=== PATIENT | female | born 1990 | race Caucasian/White ===

== ENCOUNTER 2016-08-02 12:01 | Inpatient (IN) | payer OTHER ==
[~2016-08-02] VITALS: Ht 154.9 cm; Wt 49.0 kg
[2016-08-02 12:03] VITALS: BP 143/99
[2016-08-02] MEDS ORDERED: ONDANSETRON 4 MG/2 ML VIAL IVP ONE (12:35)
[2016-08-02] MEDS ORDERED: NACL 0.9% 1,000 ML IV ONE (12:35)
[2016-08-02 12:40] LABS: BASOPHILS # (AUTO) 0.1 K/uL (0.00-0.22); BASOPHILS % (AUTO) 0.9 % (0.0-2.0); EOSINOPHILS # (AUTO) 0.2 K/uL (0-0.4); EOSINOPHILS % (AUTO) 2.6 % (0.0-4.0); HEMATOCRIT 29.7 % (36-48); HEMOGLOBIN 9.5 g/dL (12.0-16.0); LYMPHOCYTES # (AUTO) 1.1 K/uL (2.5-16.5); LYMPHOCYTES % (AUTO) 13.6 % (20.5-51.1); MEAN CORPUSCULAR HEMOGLOBIN 28 pg (27-31); MEAN CORPUSCULAR HGB CONC 32 g/dL (33-37); MEAN CORPUSCULAR VOLUME 88 fL (80-94); MONOCYTES # (AUTO) 0.2 K/uL (0.8-1.0); MONOCYTES % (AUTO) 2.9 % (1.7-9.3); NEUTROPHILS # (AUTO) 6.7 K/uL (1.8-7.7); PLATELET COUNT (AUTO) 566 K/uL (140-450); RED BLOOD CELL COUNT(AUTO) 3.39 MIL/uL (4.20-5.40); RED CELL DISTRIBUTION WIDTH 16.3 % (11.6-13.7); WHITE BLOOD COUNT (AUTO) 8.3 K/uL (4.8-10.8)
[2016-08-02] MEDS ORDERED: KETOROLAC 30 MG/ML VIAL IVP ONE (12:45)
--- NOTE | 2016-08-02 12:45 | NUR ---
PT PLACED IN BED 7. Addendum: 08/02/16 at 1422 by [facility] Amendment undone in EDM - 08/02/16 at 1422 by [facility] Pt continues to have dry heaving and severe nausea. Lights dimmed. Dr. See made aware.
[2016-08-02] MEDS ORDERED: PROMETHAZINE 25 MG/ML VIAL IVP ONE (13:00)
--- NOTE | 2016-08-02 13:00 | NUR ---
PT RECEIVED IV ZOFRAN. PT CONTINUES TO DRY HEAVE AND VOMITING. DR. BILL MADE AWARE.
--- NOTE | 2016-08-02 13:04 | NUR ---
25/F bib sister for vomiting and abdominal pain starting last night. Pt is noted vomiting with severe nausea and dry heaving. Patient states "I was just discharged from [facility] for the same thing." Patient states she was admitted for "some gastro something. I dont know what it's called." Abdomen soft, tender with palpation. Pt denies any diarrhea. Patient is AOX4, clear speech, skin is pale, cool to touch. Pt placed in a gown, on choir singer pulse oximetry and blood pressure monitoring.
--- NOTE | 2016-08-02 13:10 | NUR ---
MEDICATED FOR VOMITING
[2016-08-02 13:14] LABS: ALBUMIN 3.3 g/dL (3.4-5.0); ANION GAP 11.4 (8-16); CALCIUM 8.9 mg/dL (8.5-10.1); CARBON DIOXIDE 29.5 mmol/L (21-32); CREATININE 1.3 mg/dL (0.6-1.3); POTASSIUM 4.9 mmol/L (3.5-5.1); TOTAL BILIRUBIN 0.2 mg/dL (0.0-1.0); TOTAL PROTEIN, SERUM 6.1 g/dL (6.4-8.2)
[2016-08-02] MEDS ORDERED: MORPHINE SULFATE 4 MG/ML SYR IVP ONE (13:20)
--- NOTE | 2016-08-02 13:30 | NUR ---
Patient being evaluated by Dr. See at bedside.
--- NOTE | 2016-08-02 13:32 | NUR ---
MEDICATED FOR PAIN
--- NOTE | 2016-08-02 13:32 | NUR ---
CONTINUE TO MONITOR
[2016-08-02] MEDS ORDERED: LANTUS SUBQ (13:43)
[2016-08-02] MEDS ORDERED: CLON0.1T42 PO (13:43)
[2016-08-02] MEDS ORDERED: PANT40EC PO (13:43)
[2016-08-02] MEDS ORDERED: SYN.1 PO (13:43)
--- NOTE | 2016-08-02 13:44 | NUR ---
PT REPORTS BEING ON HUMALOG BASED ON HOME SLIDING SCALE.
--- NOTE | 2016-08-02 13:45 | NUR ---
PT CONTINUES TO C/O SEVERE NAUSEA AND HEADACHE BUT REPORTS HAVING IMPROVEMENT WITH ABDOMINAL PAIN. PT NOTED VOMITING AND DRY HEAVING AT THIS TIME. DR. BILL MADE AWARE.
[2016-08-02] MEDS ORDERED: METOCLOPRAMIDE 10 MG/2 ML INJ VIAL IVP ONE (13:50)
[2016-08-02] MEDS ORDERED: diphenhydrAMINE 50 MG/ML VIAL IVP ONE (13:50)
--- NOTE | 2016-08-02 14:22 | NUR ---
Pt continues to have dry heaving and severe nausea. Lights dimmed. Dr. See made aware.
[2016-08-02] MEDS ORDERED: LORazepam 2 MG/ML VIAL IVP PRN (14:25)
[2016-08-02] MEDS ORDERED: ACETAMINOPHEN 325 MG TAB PO PRN (14:25)
[2016-08-02] MEDS ORDERED: DEXTROSE 50% 50 ML SYR IVP PRN (14:25)
[2016-08-02] MEDS ORDERED: LORazepam 2 MG/ML VIAL IVP ONE (14:30)
--- NOTE | 2016-08-02 14:43 | NUR ---
Patient will be admitted to care of Dr. Cunha. Admited to TELE. Will go to room 120B. Belongings list completed. Report to Katie FRANCIS.
--- NOTE | 2016-08-02 15:15 | NUR ---
PT ON UNIT. NO S/S OF ACUTE DISTRESS. PT SLEEPING IN BED. IV SITE PATENT AND INTACT. AAOX4. PT APPEARS PALE AND LETHARGIC. PT'S SISTER AT BEDSIDE. PT AND SISTER ORIENTED TO ROOM. CALL LIGHT WITHIN REACH. SAFETY MEASURES ENSURED. WILL CONTINUE TO MONITOR.
[2016-08-02] MEDS: NACL 0.9% 1,000 ML IV SCH (15:16)
[2016-08-02 15:17] VITALS: BP 163/100
[2016-08-02] MEDS ORDERED: PNEUMOCOCCAL VACCINE 23 MCG/0.5 ML VIAL IMVAC SCH (15:35)
[2016-08-02] MEDS ORDERED: METOCLOPRAMIDE 10 MG/2 ML INJ VIAL IVP PRN (16:55)
--- NOTE | 2016-08-02 17:09 | NUR ---
PT SLEEPING IN BED. NO S/S OF ACUTE DISTRESS. IV SITE PATENT AND INTACT. CALL LIGHT WITHIN REACH. BED ALARM ON. WILL CONTINUE TO MONITOR.
[2016-08-02] MEDS ORDERED: LABETALOL 200 MG TAB PO SCH (17:15)
[2016-08-02] MEDS: BLOOD GLUCOSE MONITORING 1 DEV DEV FS SCH ×2 (17:25→21:17)
[2016-08-02] MEDS: HYDROcodone/APAP 5/325 MG 1 TAB TAB PO PRN (17:54)
[2016-08-02] MEDS: INSULIN LISPRO SLIDING SCALE 100 UNITS/ML VIAL SUBQ PRN ×2 (18:32→21:16)
--- NOTE | 2016-08-02 19:33 | NUR ---
RECEIVED REPORT FROM DAY SHIFT NURSE. PT IS AAOX4, SHE IS VOMITING AT THIS TIME, WILL MEDICATE PT. ON ROOM HAS NO S/S OF RESPIRATORY DISTRESS/DISCOMFORT NOTED. IV IS PATENT AND INTACT. PLAN OF CARE DISCUSSED, VERBALIZED UNDERSTANDING. SAFETY MEASURES CHECKED, CALL LIGHT WITHIN REACH. WILL CONTINUE TO MONITOR.
--- NOTE | 2016-08-02 19:33 | NUR ---
ENDORSED PLAN OF CARE TO NIGHT RN. PT REMAINS IN STABLE CONDITION.
[2016-08-02] MEDS: ONDANSETRON 4 MG/2 ML VIAL IVP PRN (19:51)
[2016-08-02] MEDS ORDERED: PANTOPRAZOLE 40 MG INJ VIAL IVP SCH (21:00)
[2016-08-02] MEDS ORDERED: INSULIN GLARGINE RECOMBINAN SUBQ SCH (21:00)
[2016-08-02] MEDS ORDERED: cloNIDine 0.1 MG TAB PO SCH (21:00)
[2016-08-02] MEDS: INSULIN DETEMIR 100 UNITS/ML 10 ML VIAL SUBQ SCH (21:14)
--- NOTE | 2016-08-02 21:15 | NUR ---
PT COMPLAINED OF PAIN, PROVIDED HEALTH TEACHING ABOUT PAIN MANAGEMENT, OFFERED TO DISCUSS IT TOMORROW WITH THE DOCTOR ABOUT HER PAIN, OFFERED TYLENOL AND VERBALIZED AGREEMENT. WILL ADMINISTER PAIN MED PER MD ORDERED.
[2016-08-02] MEDS: PANTOPRAZOLE 40 MG INJ VIAL IVP SCH (21:28)
[2016-08-02] MEDS: cloNIDine 0.1 MG TAB PO SCH (21:29)
--- NOTE | 2016-08-02 21:30 | NUR ---
DUE MEDS GIVEN. PROVIDED HEALTH TEACHING , S/E AND BENEFITS OF MEDS, VERBALIZED UNDERSTANDING. PT TOLERATED WELL.
--- NOTE | 2016-08-02 22:50 | NUR ---
SISTER FIDEL CALLED AND SPOKE HER VIA PHONE. SHE STATED THAT THE PT CALLED HER BECAUSE SHE WANTED TO DISCHARGE AND GO TO [place]. PT IS SLEEPING, AND IN STABLE CONDITION. I TOLD TO THE SISTER TO CALL BACK FOR ANY UPDATES. CHARGE NURSE MADE AWARE AND WILL ENDORSE TO AM NURSE.
[2016-08-03] VITALS (7 sets, daily range): BP systolic 110–155; BP diastolic 54–99
--- NOTE | 2016-08-03 | NUR ---
EYES CLOSED, RESTING QUIETLY. BREATHING EVEN AND UNLABORED. V/S CHECKED AND STABLE. CALL LIGHT WITHIN REACH.
--- NOTE | 2016-08-03 00:40 | NUR ---
SISTER FIDEL CALLED UPDATED PT'S CONDITION AND PT IS SLEEPING AND IN STABLE CONDITION. CALL LIGHT WITHIN REACH.
--- NOTE | 2016-08-03 01:15 | NUR ---
PT CHECKED, EYES CLOSED AND RESTING QUIETLY, BREATHING EVEN AND UNLABORED. NO S/S OF RESPIRATORY DISTRESS/DISCOMFORT NOTED. CALL LIGHT WITHIN REACH.
[2016-08-03] MEDS: NACL 0.9% 1,000 ML IV SCH ×3 (02:53→21:53)
--- NOTE | 2016-08-03 03:15 | NUR ---
PT CHECKED, EYES CLOSED, RESTING QUIETLY, BREATHING EVEN AND UNLABORED. AROUSABLE BY HER NAME. ASKED HER IF SHE IS IN PAIN, DENIED ANY PAIN. NO S/S OF RESPIRATORY DISTRESS/DISCOMFORT NOTED.
[2016-08-03] MEDS: BLOOD GLUCOSE MONITORING 1 DEV DEV FS SCH ×4 (05:30→20:56)
--- NOTE | 2016-08-03 05:41 | NUR ---
PT AWAKE AND CHECKED BS. BSL= 31, ADMINISTERED DEXTROSE 50% PER MD ORDERED. OFFERED CRACKERS AND JUICE. PT TOLERATING WELL. WILL CONTINUE TO MONITOR.
[2016-08-03 06:32] LABS: BASOPHILS # (AUTO) 0.1 K/uL (0.00-0.22); BASOPHILS % (AUTO) 2.1 % (0.0-2.0); EOSINOPHILS # (AUTO) 0.1 K/uL (0-0.4); EOSINOPHILS % (AUTO) 1.2 % (0.0-4.0); HEMATOCRIT 26.4 % (36-48); HEMOGLOBIN 8.6 g/dL (12.0-16.0); LYMPHOCYTES % (AUTO) 32.5 % (20.5-51.1); MEAN CORPUSCULAR HEMOGLOBIN 29 pg (27-31); MEAN CORPUSCULAR HGB CONC 32 g/dL (33-37); MEAN CORPUSCULAR VOLUME 89 fL (80-94); MONOCYTES # (AUTO) 0.4 K/uL (0.8-1.0); MONOCYTES % (AUTO) 6.1 % (1.7-9.3); NEUTROPHILS # (AUTO) 3.5 K/uL (1.8-7.7); NEUTROPHILS % (AUTO) 58.1 % (42.2-75.2); PLATELET COUNT (AUTO) 495 K/uL (140-450); RED BLOOD CELL COUNT(AUTO) 2.99 MIL/uL (4.20-5.40); RED CELL DISTRIBUTION WIDTH 16.5 % (11.6-13.7); WHITE BLOOD COUNT (AUTO) 6.1 K/uL (4.8-10.8)
[2016-08-03 06:41] LABS: ALBUMIN 2.6 g/dL (3.4-5.0); ANION GAP 9.7 (8-16); CALCIUM 8.6 mg/dL (8.5-10.1); CARBON DIOXIDE 29.3 mmol/L (21-32); CREATININE 1.5 mg/dL (0.6-1.3); MAGNESIUM 2.2 mg/dL (1.8-2.4); TOTAL BILIRUBIN 0.2 mg/dL (0.0-1.0); TOTAL PROTEIN, SERUM 5.5 g/dL (6.4-8.2)
--- NOTE | 2016-08-03 07:00 | NUR ---
RE CHECKED BL SUGAR. BSL= 127.
--- NOTE | 2016-08-03 07:25 | NUR ---
ENDORSED MT TO DAY SHIFT NURSE. PT IN STABLE CONDITION.
--- NOTE | 2016-08-03 07:26 | NUR ---
RECEIVED PT IN BED. ASLEEP. AROUSABLE TO VOICE. NO SOB NOTED. DENIES ANY PAIN OR DISCOMFORT AT THIS TIME. POSITIVE BOWEL SOUNDS NOTED ON FOUR QUADRANTS. PT AMBULATORY. SAFETY PRECAUTION IN PLACE. CALL LIGHT WITHIN REACH.
--- NOTE | 2016-08-03 08:35 | NUR ---
PATIENT HAS BEEN SCREENED AND CATEGORIZED MODERATE RISK. PATIENT WILL BE SEEN WITHIN 3-5 DAYS OF ADMISSION. 08/05/16 TO 08/07/[address]
[2016-08-03] MEDS ORDERED: PANTOPRAZOLE 40 MG TABEC PO SCH (09:00)
[2016-08-03] MEDS: INSULIN DETEMIR 100 UNITS/ML 10 ML VIAL SUBQ SCH ×2 (09:00→21:00)
--- NOTE | 2016-08-03 09:00 | NUR ---
CALLED [facility]. PAGED DR. WISDOM FOR CRITICAL LAB VALUE OF GLUCOSE 48MG/DL AT 0500, WHICH WENT UP TO 127 MG/DL AT 0700.
--- NOTE | 2016-08-03 09:10 | NUR ---
DR. WISDOM CALLED BACK AND MADE AWARE OF CRITICAL LAB VALUE GLUCOSE.
[2016-08-03] MEDS: PANTOPRAZOLE 40 MG INJ VIAL IVP SCH ×2 (09:19→20:59)
[2016-08-03] MEDS: cloNIDine 0.1 MG TAB PO SCH ×2 (09:20→21:00)
[2016-08-03] MEDS: LEVOTHYROXINE 0.1 MG TAB PO SCH (09:20)
[2016-08-03] MEDS: amLODIPine 5 MG TAB PO SCH (09:21)
--- NOTE | 2016-08-03 13:01 | NUR ---
DR. WISDOM CAME TO SEE PT. MADE AWARE OF LATEST BLOOD SUGAR LEVEL AND VITAL SIGNS AT 0900 AND AFTER THE REASSESSMENT.
[2016-08-03] MEDS ORDERED: LISINOPRIL 20 MG TAB PO SCH (13:30)
--- NOTE | 2016-08-03 14:00 | NUR ---
DR. WISDOM MADE NEW ORDER FOR BP MEDICATION AND CARRIED OUT. CHECKED BP OF PT BEFORE GIVING WENT DOWN FROM 152/70 TO 120/75. NEW MEDICATION FOR BP NOT GIVEN RIGHT NOW. WILL CONTINUE TO MONITOR BP. PT JUST FINISHED EATING HER LUNCH CONSUMED 60%. BLOOD SUGAR RECHECKED WENT UP FROM 67MG/DL TO 160MG/DL. NEEDS ATTENDED. Addendum: 08/03/16 at 1417 by Manjula Macdonald RN BLOOD SUGAR RECHECKED WENT UP FROM 87MG/DL TO 160MG/DL.
--- NOTE | 2016-08-03 15:21 | NUR ---
FREQUENT VISUAL CHECKS DONE. ASSISTED PT GOING TO THE BATHROOM TO VOID. DENIES ANY DISCOMFORT WITH BLADDER ELIMINATION. PT AMBULATORY AND STEADY. PT HAS BEEN SLEEPING A LOT DURING THE DAY. VERBALIZED SHE WASN'T ABLE TO SLEEP THAT MUCH LAST NIGHT. NO SOB NOTED AT THIS TIME. PT POSITIONED TO COMFORT. DENIES ANY PAIN AT THIS TIME.
--- NOTE | 2016-08-03 16:20 | NUR ---
BLOOD SUGAR CHECKED WITH 160 MG/DL RESULT. INSULIN COVERAGE HELD DUE TO PT'S BLOOD SUGAR LEVEL FLUCTUATING. WILL CONTINUE TO MONITOR.
--- NOTE | 2016-08-03 19:30 | NUR ---
PT KEPT CLEAN, DRY AND COMFORTABLE, NEEDS ATTENDED. ENDORSED TO NEXT SHIFT FOR CONTINUITY OF CARE. DENIES ANY PAIN OR DISCOMFORT AT THIS TIME. NO ABDOMINAL PAIN, NAUSEA OR VOMITING NOTED ON SHIFT. ENDORSED ON STABLE CONDITION.
--- NOTE | 2016-08-03 19:31 | NUR ---
RECEIVED REPORT FROM DAY SHIFT NURSE. PT IS AAOX4, RESTING, DENIES PAIN AT THIS TIME. ON ROOM AIR, NO S/S OF RESPIRATORY DISTRESS/DISCOMFORT NOTED. IV SITE IS PATENT AND INTACT. PLAN OF CARE DISCUSSED, VERBALIZED UNDERSTANDING. SAFETY MEASURES CHECKED, CALL LIGHT WITHIN REACH. WILL CONTINUE TO MONITOR.
[2016-08-03] MEDS: INSULIN LISPRO SLIDING SCALE 100 UNITS/ML VIAL SUBQ PRN (20:57)
--- NOTE | 2016-08-03 21:08 | NUR ---
DUE MEDS GIVEN. PROVIDED DRUG INFO. BENEFITS, S/E, VERBALIZED UNDERSTANDING. PT TOLERATED WELL.
[2016-08-03] MEDS: HYDROcodone/APAP 5/325 MG 1 TAB TAB PO PRN (23:56)
--- NOTE | 2016-08-04 | NUR ---
PT COMPLAINED OF PAIN 10/07. V/S CHECKED. ADMINISTERED PAIN MED PER MD ORDERED.
--- NOTE | 2016-08-04 02:09 | NUR ---
EYES CLOSED, RESTING QUIETLY BREATHING EVEN AND UNLABORED. CALL LIGHT WITHIN REACH.
--- NOTE | 2016-08-04 04:31 | NUR ---
PT SLEEPING. NO S/S OF RESPIRATORY DISTRESS/DISCOMFORT NOTED. CALL LIGHT WITHIN REACH.
[2016-08-04] MEDS: ONDANSETRON 4 MG/2 ML VIAL IVP PRN (05:15)
[2016-08-04] MEDS: HYDROcodone/APAP 5/325 MG 1 TAB TAB PO PRN (05:15)
--- NOTE | 2016-08-04 05:19 | NUR ---
PT COMPLAINED OF PAIN AND FELLING NAUSEOUS, MEDICATED PER MD ORDERED. PROVIDED DRUG INFO.
[2016-08-04] MEDS: INSULIN LISPRO SLIDING SCALE 100 UNITS/ML VIAL SUBQ PRN ×2 (05:46→06:04)
[2016-08-04] MEDS: BLOOD GLUCOSE MONITORING 1 DEV DEV FS SCH ×2 (06:23→11:10)
[2016-08-04 06:24] LABS: BASOPHILS # (AUTO) 0.1 K/uL (0.00-0.22); BASOPHILS % (AUTO) 1.9 % (0.0-2.0); EOSINOPHILS # (AUTO) 0.2 K/uL (0-0.4); EOSINOPHILS % (AUTO) 3.7 % (0.0-4.0); HEMATOCRIT 23.9 % (36-48); HEMOGLOBIN 8.1 g/dL (12.0-16.0); LYMPHOCYTES # (AUTO) 2.2 K/uL (2.5-16.5); MEAN CORPUSCULAR HEMOGLOBIN 29 pg (27-31); MEAN CORPUSCULAR HGB CONC 34 g/dL (33-37); MEAN CORPUSCULAR VOLUME 87 fL (80-94); MONOCYTES # (AUTO) 0.4 K/uL (0.8-1.0); NEUTROPHILS % (AUTO) 51.4 % (42.2-75.2); PLATELET COUNT (AUTO) 543 K/uL (140-450); RED BLOOD CELL COUNT(AUTO) 2.75 MIL/uL (4.20-5.40); RED CELL DISTRIBUTION WIDTH 16.7 % (11.6-13.7); WHITE BLOOD COUNT (AUTO) 5.9 K/uL (4.8-10.8)
[2016-08-04 06:32] LABS: ANION GAP 10.4 (8-16); CARBON DIOXIDE 26.7 mmol/L (21-32); CREATININE 1.4 mg/dL (0.6-1.3); POTASSIUM 4.1 mmol/L (3.5-5.1)
--- NOTE | 2016-08-04 07:19 | NUR ---
ENDORSED PT TO DAY SHIFT NURSE FOR CONTINUITY OF CARE. PT IN STABLE CONDITION.
--- NOTE | 2016-08-04 07:20 | NUR ---
RECEIVED PT IN BED AWAKE. ALERT ORIENTED X4. NO SOB. DENIES ANY PAIN OR DISCOMFORT AT THIS TIME. POSITIVE BOWEL SOUNDS NOTED ON FOUR QUADRANTS. PT AMBULATORY TO THE BATHROOM. SAFETY PRECAUTION IN PLACE. CALL LIGHT WITHIN REACH.
[2016-08-04 08:00] VITALS: BP 126/86
[2016-08-04] MEDS: PANTOPRAZOLE 40 MG INJ VIAL IVP SCH (08:55)
[2016-08-04] MEDS: amLODIPine 5 MG TAB PO SCH (08:56)
[2016-08-04] MEDS: LEVOTHYROXINE 0.1 MG TAB PO SCH (08:57)
[2016-08-04] MEDS: cloNIDine 0.1 MG TAB PO SCH (08:57)
[2016-08-04] MEDS: INSULIN DETEMIR 100 UNITS/ML 10 ML VIAL SUBQ SCH (08:58)
[2016-08-04] MEDS ORDERED: LISINOPRIL 20 MG TAB PO SCH (09:00)
[2016-08-04] MEDS: NACL 0.9% 1,000 ML IV SCH (11:08)
[2016-08-04] MEDS ORDERED: ONDA4ODT1 PO (14:12)
[2016-08-04] MEDS ORDERED: CLON0.1T42 PO (14:12)
[2016-08-04] MEDS ORDERED: LISI-420 PO (14:12)
[2016-08-04] MEDS ORDERED: AMLO5TAB4 PO (14:12)
--- NOTE | 2016-08-04 14:13 | NUR ---
DISCHARGE ORDERS MADE BY MD AND CARRIED OUT. HEALTH TEACHINGS AND DISCHARGE INSTRUCTIONS GIVEN TO PT. PT VERBALIZED UNDERSTANDING. SIGNED DISCHARGE PAPERS.
[2016-08-04 16:00] VITALS: BP 138/96
--- NOTE | 2016-08-04 16:06 | NUR ---
CALLED SISTER TREVOR, MADE AWARE OF DISCHARGE ORDERS. SHE SAID SHE WILL COME TO [employer] OPERATOR HELPER PT.
--- NOTE | 2016-08-04 17:07 | NUR ---
IV CANNULA REMOVED AND INTACT. ARMBAND REMOVED. PT ON STABLE CONDITION. PANKAJ ANY PAIN OR DISCOMFORT. NO SOB NOTED. FAMILY AT LOBBY WAITING SINCE THEY HAVE CHILDREN WITH THEM. HELPED PT GATHER HER BELONGINGS. WHEELED PT OUT TO THE LOBBY TO MEET FAMILY AND TO THE PARKING LOT. TO THEIR PRIVATE OWN VEHICLE.
--- NOTE | 2016-08-05 14:59 | NUR ---
CM NOTE RETRO: SENT DISCHARGE SUMMARY, H&P, ER DR'S NOTES, PROGRESS NOTE TO [facility] FAX# [phone] PH# [phone] KALYAN ROWE [address]
== END 2016-08-04 17:00 | disposition home or self-care (01) | DRG 199 ==
LOC: MED 12:01 → MTU 14:23
PROVIDERS: ADMIT Hospitalist; ATTEND Hospitalist
DX: I16.0 Hypertensive urgency (principal); E11.22 Type 2 diabetes mellitus with diabetic chronic kidney disease; K31.84 Gastroparesis; E11.43 Type 2 diabetes mellitus with diabetic autonomic (poly)neuropathy; I12.9 Hypertensive chronic kidney disease with stage 1 through stage 4 chronic kidney disease, or unspecified chronic kidney disease; E03.9 Hypothyroidism, unspecified; N18.9 Chronic kidney disease, unspecified; E86.0 Dehydration; Z90.49 Acquired absence of other specified parts of digestive tract
CPT/HCPCS: 36415; 80048; 80053; 81025; 82009; 82948; 83690; 83735; 85025; 87081; 93005; 96374; 96375; 99285; C9113; J1200; J1644; J1815; J1885; J2060; J2270; J2405; J2550; J2765; J7030

== ENCOUNTER 2016-08-07 14:29 | Inpatient (IN) | payer OTHER ==
[~2016-08-07] VITALS: Ht 154.9 cm; Wt 48.5 kg
[~2016-08-07 14:29] MED LIST: AMLO5TAB4 PO; CLON0.1T42 PO; LANTUS SUBQ; LISI-420 PO; ONDA4ODT1 PO; PANT40EC PO; SYN.1 PO
[2016-08-07 14:49] VITALS: BP 152/110
--- NOTE | 2016-08-07 15:21 | NUR ---
PT BIBA TO BED 4 AT THIS TIME.
--- NOTE | 2016-08-07 15:25 | NUR ---
25F BIBA FROM HOME C/O NAUSEA/VOMITING X LAST NIGHT; PT STATES HAS HAD NAUSEA/VOMITING X 1 MONTH, AND ADMITTED TO [facility] LAST WEEK FOR SAME S/S; PT C/O BURNING EPIGASTRIC PAIN, NON-RADIATING, 8/10 X LAST NIGHT, AND THROBBING HEADACHE, RADIATING TO NECK, 10/10 X LAST NIGHT; PT STATES HAD 5 EPISODES OF VOMITING TODAY, BUT DENIES DIARRHEA AT THIS TIME; ABDOMEN SOFT, NON-TENDER, ACTIVE BOWEL SOUNDS X 4 QUADRANTS; PT DENIES TRAUMA OR INJURY TO HEAD, DENIES BLURRY VISION OR VISION CHANGES AT THIS TIME; SCAR NOTED TO RT ABDOMEN FROM GALLBLADDER REMOVAL X LAST MONTH; PT A&OX4, PERRLA, BL LUNG SOUNDS CLEAR, RR EVEN/UNLABORED, SKIN IS WARM/DRY/INTACT AT THIS TIME; PT PLACED ON MONITOR, RESTING IN BED W/ HOB ELEVATED AND IN LOWEST POSITION; POSITIONED FOR COMFORT; ER MD MADE AWARE OF STATUS. WILL CONTINUE TO MONITOR.
[2016-08-07] MEDS ORDERED: PROCHLORPERAZINE 10 MG/2 ML VIAL IVP ONE (15:30)
[2016-08-07] MEDS ORDERED: SUMAtriptan 6 MG/0.5 ML VIAL SUBQ ONE (15:30)
[2016-08-07] MEDS ORDERED: diphenhydrAMINE 50 MG/ML VIAL IVP ONE (15:30)
[2016-08-07] MEDS ORDERED: NACL 0.9% 1,000 ML IV ONE (15:30)
--- NOTE | 2016-08-07 15:57 | NUR ---
PT TAKEN TO CT VIA W/C ACCOMPANIED BY PROPERTY WORKER.
[2016-08-07 16:02] LABS: BASOPHILS # (AUTO) 0.1 K/uL (0.00-0.22); BASOPHILS % (AUTO) 1.1 % (0.0-2.0); EOSINOPHILS # (AUTO) 0.3 K/uL (0-0.4); EOSINOPHILS % (AUTO) 3.8 % (0.0-4.0); HEMATOCRIT 27.8 % (36-48); LYMPHOCYTES # (AUTO) 1.5 K/uL (2.5-16.5); LYMPHOCYTES % (AUTO) 22.9 % (20.5-51.1); MEAN CORPUSCULAR HEMOGLOBIN 28 pg (27-31); MEAN CORPUSCULAR HGB CONC 32 g/dL (33-37); MEAN CORPUSCULAR VOLUME 87 fL (80-94); MONOCYTES # (AUTO) 0.4 K/uL (0.8-1.0); MONOCYTES % (AUTO) 5.4 % (1.7-9.3); NEUTROPHILS # (AUTO) 4.4 K/uL (1.8-7.7); NEUTROPHILS % (AUTO) 66.8 % (42.2-75.2); PLATELET COUNT (AUTO) 694 K/uL (140-450); WHITE BLOOD COUNT (AUTO) 6.7 K/uL (4.8-10.8)
[2016-08-07 16:21] LABS: ANION GAP 9.4 (8-16); CALCIUM 9.1 mg/dL (8.5-10.1); CARBON DIOXIDE 29.4 mmol/L (21-32); CREATININE 1.5 mg/dL (0.6-1.3); POTASSIUM 3.8 mmol/L (3.5-5.1)
[2016-08-07 16:28] LABS: ALBUMIN 3.2 g/dL (3.4-5.0); TOTAL BILIRUBIN 0.3 mg/dL (0.0-1.0); TOTAL PROTEIN, SERUM 6.8 g/dL (6.4-8.2)
[2016-08-07 16:33] LABS: INR 0.9 (0.8-1.2); PARTIAL THROMBOPLASTIN TIME 25.6 secs (22-35.6); PROTHROMBIN TIME 8.8 secs (10.8-13.4)
--- NOTE | 2016-08-07 16:41 | NUR ---
PT O2 SAT 100 % ON ROOM AIR AT THIS TIME; PT DENIES NEED FOR SUPPLEMENTAL O2; STATES "I'M BREATHING FINE"; RR EVEN/UNLABORED AT THIS TIME; WILL CONTINUE TO MONITOR.
--- NOTE | 2016-08-07 17:16 | NUR ---
Patient appears to be resting comfortably in bed. Respirations even and unlabored. NO SIGNS OF ACUTE DISTRESS NOTED AT THIS TIME; WILL CONTINUE TO MONITOR.
[2016-08-07] MEDS ORDERED: hydrALAZINE 20 MG/ML VIAL IVP PRN ×2 (17:25→18:20)
[2016-08-07] MEDS ORDERED: cloNIDine 0.1 MG TAB PO PRN (17:25)
[2016-08-07] MEDS: NACL 0.9% 1,000 ML IV SCH (17:25)
[2016-08-07] MEDS ORDERED: ACETAMINOPHEN 325 MG TAB PO PRN (17:25)
[2016-08-07] MEDS ORDERED: LORazepam 2 MG/ML VIAL IVP PRN (17:25)
[2016-08-07 17:28] LABS: FREE T4 (FREE THYROXINE) 0.92 ng/dL (0.76-1.46)
[2016-08-07] MEDS ORDERED: INSULIN LISPRO SLIDING SCALE 100 UNITS/ML VIAL SUBQ PRN (17:35)
[2016-08-07] MEDS ORDERED: DEXTROSE 50% 50 ML SYR IVP PRN (17:35)
[2016-08-07 17:54] LABS: AMPHETAMINE, URINE NEG. ng/ml (NEG <=1000); BARBITURATE, URINE NEG. ng/ml (NEG <=200); BENZODIAZEPINE, URINE NEG. ng/mL (NEG <=200); CANNABINOID, URINE NEG. ng/mL (NEG <=50); COCAINE, URINE NEG. ng/mL (NEG <=300); OPIATE, URINE NEG. ng/mL (NEG <=2000); PHENCYCLIDINE SCREEN,URINE NEG. ng/mL (NEG <=25)
--- NOTE | 2016-08-07 17:54 | NUR ---
Patient will be admitted to care of DR. PALENCIA. Admited to TELEMETRY. Will go to [id number]. Belongings list completed. Report to TITO LOTT.
--- NOTE | 2016-08-07 17:54 | NUR ---
PT ARRIVED ON UNIT VIA A GURNEY. PT IS AAOX4 AND SHOWS NO S/S OF DISTRESS. PT IS ON TELE MONITORING. IV NOTED ON THE R WRIST PATENT AND INTACT. SKIN IS INTACT. PT C/O PAIN WAITING ON NEW ORDERS FOR PAIN MANAGEMENT. BED IS LOWERED, FLAT WITH CALL LIGHT WITHIN REACH.
[2016-08-07 17:55] LABS: THYROID STIMULATING HORMONE 182.15 uIU/mL (0.34-3.76)
[2016-08-07 18:00] VITALS: BP 196/123
--- NOTE | 2016-08-07 18:00 | NUR ---
PT V/S WERE BP 196/123 ON THE R ARM. BP ON THE LEFT ARM WAS 180/104. HR IS 111. DR PALENCIA WAS PAGED WILL AWAIT FOR ORDERS.
[2016-08-07 18:05] VITALS: BP 180/104
--- NOTE | 2016-08-07 18:15 | NUR ---
DR PALENCIA CALLED BACK AND ORDERS WERE RECEIVED.
[2016-08-07 18:27] VITALS: BP 163/99
--- NOTE | 2016-08-07 18:30 | NUR ---
PT BP IS NOW 163/99 AND HR 104. ADMINISTERED PRN HYDRALAZINE 10 MG IVP FOR SYSTOLIC BLOOD PRESSURE OVER 160.
[2016-08-07 19:27] VITALS: BP 157/99
--- NOTE | 2016-08-07 19:27 | NUR ---
REASSESSED PT BP IS AT 157/95 HR 90. PT IS IN BED SLEEPING AND SHOWS NO S/S OF DISTRESS. PT IS ON ROOM AIR.
--- NOTE | 2016-08-07 19:30 | NUR ---
GAVE REPORT TO NIGHT NURSE. PT ENDORSED IN STABLE CONDITION.
--- NOTE | 2016-08-07 20:30 | NUR ---
SEEN PT AWAKE, ALERT AND ORIENTED ASKING FOR MEDICATION FOR PAIN AND NAUSEA. WILL MEDICATE ORDERED. INITIAL ASSESSMENT DONE. VITAL SIGNS CHECKED. PT STATES SHE FEELS LIKE HER BLOOD SUGAR IS LOW. BS CHECKED: 53. PT GIVEN D50 IVP ORDERED. INFORMED PT THAT HER BS WILL BE RECHECK AFTER 15-20MINS. TOLD PT THAT SHE WILL GET MORPHINE FOR PAIN AND ZOFRAN FOR HER NAUSEA. PT STATES ZOFRAN DOESN'T HELP. INFORMED HER WILL NOTIFY MD BUT HAVE IT FOR NOW. PT VERBALIZED UNDERSTANDING. PT GIVEN ZOFRAN AND MORPHINE ORDERED. WILL GIVE CLONIDINE AND ASKED PT IF SHE'S ABLE TO TAKE IT W/O THROWING UP. PT SAID "YES". CALL LIGHT W/IN REACH.
[2016-08-07 20:31] VITALS: BP 143/99
[2016-08-07] MEDS: MORPHINE SULFATE 2 MG/ML SYR IVP PRN (20:37)
[2016-08-07] MEDS: ONDANSETRON 4 MG/2 ML VIAL IVP PRN (20:38)
[2016-08-07] MEDS: BLOOD GLUCOSE MONITORING 1 DEV DEV FS SCH (20:45)
--- NOTE | 2016-08-07 20:55 | NUR ---
SPOKE TO DR PALENCIA REGARDING PT STILL COMPLAINING OF FEELING NAUSEOUS AND THAT ZOFRAN DOESN'T REALLY HELP. SHE ORDERED COMPAZINE 10MG IVP [id number] AND TO PUT PT ON CLEAR LIQUID DIET.
[2016-08-07] MEDS ORDERED: INSULIN DETEMIR 100 UNITS/ML 10 ML VIAL SUBQ SCH (21:00)
[2016-08-07] MEDS: cloNIDine 0.1 MG TAB PO SCH (21:00)
--- NOTE | 2016-08-07 21:05 | NUR ---
BLOOD SUGAR CHECKED:154. NO INSULIN WILL BE GIVEN SINCE PT IS STILL FEELING NAUSEOUS. BUT PT ABLE TO TAKE THE CLONIDINE W/O PROBLEM. EXTRA EMESIS BAG GIVEN. WILL CONTINUE TO MONITOR. CALL LIGHT W/IN REACH. SAFETY ENSURED.
--- NOTE | 2016-08-07 23:00 | NUR ---
AWAKEN PT. VITAL SIGNS CHECKED. PT DENIES ANY OTHER NEEDS. IVF INFUSING WELL. INSTRUCTED TO CALL WHEN IN NEED. PT VERBALIZED UNDERSTANDING.
[2016-08-08] VITALS: BP 123/72
[2016-08-08] MEDS: NACL 0.9% 1,000 ML IV SCH (01:16)
--- NOTE | 2016-08-08 02:00 | NUR ---
SEEN PT SLEEPING SOUNDLY. SAFETY ENSURED. WILL CONTINUE TO MONITOR.
[2016-08-08] MEDS ORDERED: PNEUMOCOCCAL VACCINE 23 MCG/0.5 ML VIAL IMVAC SCH (03:55)
[2016-08-08 04:00] VITALS: BP 123/82
--- NOTE | 2016-08-08 04:10 | NUR ---
SEEN PT ASLEEP. AWAKEN PT. VITAL SIGNS CHECKED. PT DENIES ANY DISCOMFORT. WILL CONTINUE TO MONITOR.
[2016-08-08] MEDS: LEVOTHYROXINE 0.1 MG TAB PO SCH (06:14)
--- NOTE | 2016-08-08 06:15 | NUR ---
SEEN PT ASLEEP. AWAKEN PT. PO MEDICATION GIVEN W/ TEACHINGS. BLOOD SUGAR CHECKED:104. NO COVERAGE NEEDED. PT WANTS TO GET UP TO THE BATHROOM. Addendum: 08/08/16 at 0654 by Fransisca Bettencourt RN CORRECTION: BS 106
[2016-08-08] MEDS: MORPHINE SULFATE 2 MG/ML SYR IVP PRN (06:25)
[2016-08-08] MEDS: PROCHLORPERAZINE 10 MG/2 ML VIAL IVP PRN (06:25)
--- NOTE | 2016-08-08 06:25 | NUR ---
PT ASSISTED TO THE BATHROOM AND BACK TO BED. PT COMPLAINING OF PAIN AND NAUSEA. WILL MEDICATE ORDERED.
[2016-08-08] MEDS: BLOOD GLUCOSE MONITORING 1 DEV DEV FS SCH ×4 (06:31→21:38)
[2016-08-08 06:39] LABS: BASOPHILS # (AUTO) 0.3 K/uL (0.00-0.22); EOSINOPHILS # (AUTO) 0.3 K/uL (0-0.4); EOSINOPHILS % (AUTO) 4.1 % (0.0-4.0); HEMATOCRIT 25.5 % (36-48); HEMOGLOBIN 8.5 g/dL (12.0-16.0); LYMPHOCYTES # (AUTO) 2.2 K/uL (2.5-16.5); LYMPHOCYTES % (AUTO) 32.5 % (20.5-51.1); MEAN CORPUSCULAR HEMOGLOBIN 29 pg (27-31); MEAN CORPUSCULAR HGB CONC 33 g/dL (33-37); MEAN CORPUSCULAR VOLUME 87 fL (80-94); MONOCYTES # (AUTO) 0.4 K/uL (0.8-1.0); MONOCYTES % (AUTO) 5.4 % (1.7-9.3); NEUTROPHILS # (AUTO) 3.5 K/uL (1.8-7.7); PLATELET COUNT (AUTO) 660 K/uL (140-450); RED BLOOD CELL COUNT(AUTO) 2.92 MIL/uL (4.20-5.40); RED CELL DISTRIBUTION WIDTH 17.3 % (11.6-13.7); WHITE BLOOD COUNT (AUTO) 6.7 K/uL (4.8-10.8)
--- NOTE | 2016-08-08 07:15 | NUR ---
PT ASKED IF I COULD CHECK HER BS I CHECKED BS AND IT WAS AT 47. I GAVE THE PATIENT ORANGE JUICE. NOTICED HER IV ON THE RIGHT HAND WAS NOT FLUSHING PROPERLY. IV FLUIDS HELD Addendum: 08/08/16 at 2013 by Rossana Mera RN TIME WAS 1914
[2016-08-08 07:16] LABS: ALBUMIN 2.5 g/dL (3.4-5.0); ANION GAP 11.2 (8-16); CALCIUM 8.5 mg/dL (8.5-10.1); CARBON DIOXIDE 25.4 mmol/L (21-32); CREATININE 1.3 mg/dL (0.6-1.3); MAGNESIUM 2.1 mg/dL (1.8-2.4); POTASSIUM 3.6 mmol/L (3.5-5.1); TOTAL BILIRUBIN 0.2 mg/dL (0.0-1.0); TOTAL PROTEIN, SERUM 5.5 g/dL (6.4-8.2)
--- NOTE | 2016-08-08 07:30 | NUR ---
REPORT GIVEN TO DAYSHIFT NURSE.
--- NOTE | 2016-08-08 07:35 | NUR ---
REPORT RECEIVED FROM TITO MALDONADO. PT IS SLEEPING IN BED BUT EASILY AWAKEN, A/OX4, AMBULATORY, PT HAS A SCAR FROM ON HER ABDOMEN FROM HX OF CHOLECYSTECTOMY, IV IS ON THE RT WRIST, PATENT, INTACT, FLUSHING WELL, NO S/S OF RESPIRATORY DISTRESS OR DISCOMFORT NOTED, SAFETY/FALL PRECAUTIONS ARE IN PLACE, DISCUSSED PLAN OF CARE WITH PT, PT VERBALIZED UNDERSTANDING, CALL LIGHT IS WITHIN REACH, WILL CONTINUE TO MONITOR.
[2016-08-08 08:00] VITALS: BP 136/85
[2016-08-08] MEDS: cloNIDine 0.1 MG TAB PO SCH (08:51)
[2016-08-08] MEDS: PANTOPRAZOLE 40 MG TABEC PO SCH (08:51)
[2016-08-08] MEDS: LISINOPRIL 20 MG TAB PO SCH (08:51)
[2016-08-08] MEDS ORDERED: amLODIPine 5 MG TAB PO SCH (09:00)
[2016-08-08] MEDS ORDERED: LEVOTHYROXINE 0.1 MG TAB PO SCH (09:00)
[2016-08-08] MEDS: ENOXAPARIN 30 MG/0.3 ML SYR SUBQ SCH (09:02)
[2016-08-08] MEDS: ONDANSETRON 4 MG/2 ML VIAL IVP PRN (09:11)
--- NOTE | 2016-08-08 09:18 | NUR ---
PATIENT HAS BEEN SCREENED AND CATEGORIZED HIGH NUTRITION RISK. PATIENT WILL BE SEEN WITHIN 1-2 DAYS OF ADMISSION. 08/08/16-08/09/[address]
--- NOTE | 2016-08-08 09:20 | NUR ---
DUE MEDICATIONS GIVEN, PT TOLERATED WELL. DR. PALENCIA IS AT BEDSIDE TALKING TO PT, CALL LIGHT WITHIN REACH, WILL CONTINUE TO MONITOR.
--- NOTE | 2016-08-08 11:30 | NUR ---
PT IS SLEEPING IN BED AT THIS TIME, NO S/S OF RESPIRATORY DISTRESS OR DISCOMFORT NOTED CALL LIGHT WITHIN REACH, WILL CONTINUE TO MONITOR.
[2016-08-08 12:00] VITALS: BP 136/83
--- NOTE | 2016-08-08 12:28 | NUR ---
RECEIVED ORDER FOR TRANSFER TO HIGHER LEVEL OF CARE, [facility]. FAXED ORDER IN INQUIRY TO [facility], FAX [phone] PHONE [phone]. CALLED [facility] AND SPOKE WITH BENJA AND FAXED ORDER IN INFORMATION TO HER AT [phone] [id number]. SHE GAVE ME AUTH FOR [facility] [id number]. THE AUTH FOR [facility] IS [id number]. I INFORMED HER THAT THE ACCEPTING PHYSICIAN THAT DR. PALENCIA SPOKE WITH WAS DR. ALAN,[facility]. Addendum: 08/08/16 at 1239 by Reny Grant CM SPOKE WITH KALYAN AT [facility], NOT BENJA
--- NOTE | 2016-08-08 12:39 | NUR ---
SPOKE WITH СВЕТЛАНА AT [facility] AND GAVE HER THE AUTH. SHE SAID SOMEONE WOULD CALL ME BACK
--- NOTE | 2016-08-08 12:44 | NUR ---
[address] PALENCIA AND SHE STATED THAT PT REQUIRES TRANSFER TO [facility] FOR TREATMENT OF PHEOCROMOCYTOMA AND SHE HAS SPOKEN WITH AND CARDIOTHORACIC SURGEON AND SHE WILL CALL ME BACK WITH THE NAME OF THE ACCEPTING PHYSICIAN. PT APPARENTLY HAS BEEN HAVING TREATMENT AT [facility] [place] FOR HER CONDITION. 1218 DR PALENCIA CALLED BACK AND THE ACCEPTING PHYSICIAN IS DR ALAN [facility].
[2016-08-08] MEDS: PRAZOSIN 1 MG CAP PO SCH ×2 (12:59→17:00)
[2016-08-08] MEDS ORDERED: METOCLOPRAMIDE 10 MG/2 ML INJ VIAL IVP SCH (13:00)
--- NOTE | 2016-08-08 13:30 | NUR ---
PT IS RESTING IN BED TALKING ON HER CELL PHONE, CALL LIGHT WITHIN REACH.
--- NOTE | 2016-08-08 13:42 | NUR ---
CALLED [facility] AND SPOKE WITH RAYMOND. THEY ARE LOOKING FOR A BED, NO BED YET. I GAVE HIM THE PHONE NUMBER TO THE FLOOR IN CASE A BED BECOMES AVAILABLE.
--- NOTE | 2016-08-08 14:19 | NUR ---
FAXED INITIAL REVIEW TO [facility] [phone] PHONE [phone] K[place] [id number]
--- NOTE | 2016-08-08 14:46 | NUR ---
08/08/16 RD INITIAL ASSESSMENT COMPLETED PLEASE REFER TO NUTRITION ASSESSMENT UNDER CARE ACTIVITY FOR ESTIMATED NUTRITIONAL NEEDS. 1. CONTINUE CLEAR LIQUID DIET, AND ADVANCE TOLERATED TO 60 GM CONSISTENT CARBOHYDRATE DIET 2. RD TO FOLLOW-UP 2-3 DAYS; HIGH RISK BLAKE MCNAMARA, THOR
--- NOTE | 2016-08-08 15:30 | NUR ---
PT IS SLEEPING IN BED BUT EASILY AWAKEN, CALL LIGHT WITHIN REACH, WILL CONTINUE TO MONITOR.
--- NOTE | 2016-08-08 16:13 | NUR ---
SPOKE WITH RAYMOND AT [facility], STILL NO BED. HE HAS THE PHONE NUMBER TO THE FLOOR IF A BED BECOMES AVAILABLE. AUTH FOR [facility] [id number] AUTH FOR [facility] [id number]
--- NOTE | 2016-08-08 17:30 | NUR ---
PT IS SLEEPING IN BED AT THIS TIME.
--- NOTE | 2016-08-08 19:15 | NUR ---
PT ASKED IF I COULD CHECK HER BS I CHECKED BS AND IT WAS AT 47. I GAVE THE PATIENT ORANGE JUICE. NOTICED HER IV ON THE RIGHT HAND WAS NOT FLUSHING PROPERLY. IV FLUIDS HELD
--- NOTE | 2016-08-08 19:25 | NUR ---
RECHECKED PATIENT'S BLOOD SUGAR AND IT INCREASED TO 52.
--- NOTE | 2016-08-08 19:40 | NUR ---
ENDORSED PT TO TITO ARORA FOR CONTINUITY OF CARE. BLOOD SUGAR INCREASED TO 79. PT STABLE AT THIS TIME.
--- NOTE | 2016-08-08 19:40 | NUR ---
RECEIVED REPORT FROM DAY SHIFT NURSE. PT IS AAOX4, DENIES PAIN. ON ROOM AIR, NO S/S OR RESPIRATORY DISTRESS/DISCOMFORT NOTED. PLAN OF CARE DISCUSSED, VERBALIZED UNDERSTANDING. SAFETY MEASURES CHECKED, CALL LIGHT WITHIN REACH. WILL CONTINUE TO MONITOR. Addendum: 08/09/16 at 0232 by Shilo Meza RN INFILTRATED IV SITE, WILL INSERT A NEW IV SITE.
[2016-08-08 19:54] VITALS: BP 101/62
--- NOTE | 2016-08-08 20:00 | NUR ---
INSERTED A NEW IV SITE TO THE LEFT WRIST. BACK FLOW OF BLOOD NOTED, PATENT AND INTACT, INFUSING WELL.
[2016-08-08] MEDS: NIFEdipine 30 MG TABER PO SCH (21:00)
--- NOTE | 2016-08-08 21:40 | NUR ---
DUE PO MED NOT GIVEN DUE TO BLOOD PRESSURE. BSL CHECKED, BSL= 106, NO INSULIN COVERAGE.
[2016-08-09] VITALS: BP 127/83
[2016-08-09] MEDS: MORPHINE SULFATE 2 MG/ML SYR IVP PRN ×2 (00:12→07:56)
[2016-08-09] MEDS: ONDANSETRON 4 MG/2 ML VIAL IVP PRN ×3 (00:12→14:57)
--- NOTE | 2016-08-09 00:12 | NUR ---
PT COMPLAINED OF PAIN 12/08. V/S CHECKED AND STABLE. ADMINISTERED PAIN MED PER MD ORDERED.
--- NOTE | 2016-08-09 02:35 | NUR ---
EYES CLOSED, BREATHING EVEN AND UNLABORED. CALL LIGHT WITHIN REACH.
[2016-08-09] MEDS: PROCHLORPERAZINE 10 MG/2 ML VIAL IVP PRN (03:03)
[2016-08-09] MEDS: HYDROcodone/APAP 5/325 MG 1 TAB TAB PO PRN ×2 (03:03→11:10)
[2016-08-09 04:00] VITALS: BP 142/87
--- NOTE | 2016-08-09 04:00 | NUR ---
V/S CHECKED AND STABLE. HAS NO S/S OF RESPIRATORY DISTRESS/DISCOMFORT NOTED. IV SITE IS PATENT AND INFUSING WELL.
[2016-08-09] MEDS: LEVOTHYROXINE 0.1 MG TAB PO SCH (06:01)
[2016-08-09 06:08] LABS: BASOPHILS # (AUTO) 0.1 K/uL (0.00-0.22); BASOPHILS % (AUTO) 0.6 % (0.0-2.0); EOSINOPHILS # (AUTO) 0.2 K/uL (0-0.4); EOSINOPHILS % (AUTO) 2.1 % (0.0-4.0); HEMATOCRIT 29.4 % (36-48); HEMOGLOBIN 9.4 g/dL (12.0-16.0); LYMPHOCYTES # (AUTO) 1.7 K/uL (2.5-16.5); LYMPHOCYTES % (AUTO) 19.4 % (20.5-51.1); MEAN CORPUSCULAR HEMOGLOBIN 26 pg (27-31); MEAN CORPUSCULAR HGB CONC 32 g/dL (33-37); MEAN CORPUSCULAR VOLUME 81 fL (80-94); MONOCYTES # (AUTO) 0.7 K/uL (0.8-1.0); MONOCYTES % (AUTO) 7.9 % (1.7-9.3); NEUTROPHILS # (AUTO) 6.2 K/uL (1.8-7.7); PLATELET COUNT (AUTO) 356 K/uL (140-450); RED BLOOD CELL COUNT(AUTO) 3.63 MIL/uL (4.20-5.40); RED CELL DISTRIBUTION WIDTH 14.1 % (11.6-13.7); WHITE BLOOD COUNT (AUTO) 8.9 K/uL (4.8-10.8)
--- NOTE | 2016-08-09 06:16 | NUR ---
BLOOD SUGAR CHECKED. BSL= 66, OFFERED ORANGE JUICE TO THE PT. TOLERATED WELL.
[2016-08-09] MEDS: BLOOD GLUCOSE MONITORING 1 DEV DEV FS SCH ×2 (06:21→11:55)
[2016-08-09 06:27] LABS: ANION GAP 10.7 (8-16); CALCIUM 8.2 mg/dL (8.5-10.1); CARBON DIOXIDE 26.8 mmol/L (21-32); CREATININE 0.7 mg/dL (0.6-1.3); POTASSIUM 3.5 mmol/L (3.5-5.1)
--- NOTE | 2016-08-09 07:35 | NUR ---
ENDORSED PT TO DAY SHIFT NURSE. PT IN STABLE CONDITION.
--- NOTE | 2016-08-09 07:40 | NUR ---
REPORT RECEIVED FROM TITO ARORA. PT IS SLEEPING IN BED BUT EASILY AWAKEN, A/OX4, AMBULATORY, PT HAS A SCAR FROM ON HER ABDOMEN FROM HX OF CHOLECYSTECTOMY, IV IS ON THE LT WRIST, PATENT, INTACT, FLUSHING WELL, BILATERAL PEDAL EDEMA NOTED, NON PITTING, NO S/S OF RESPIRATORY DISTRESS OR DISCOMFORT NOTED, SAFETY/FALL PRECAUTIONS ARE IN PLACE, DISCUSSED PLAN OF CARE WITH PT, PT VERBALIZED UNDERSTANDING, CALL LIGHT IS WITHIN REACH, WILL CONTINUE TO MONITOR.
--- NOTE | 2016-08-09 07:56 | NUR ---
PATIENT STATED SHE WAS EXPERIENCING GENERALIZED PAIN 8/. WILL MEDICATE WITH PRN PAIN MEDICATION AT THIS TIME.
[2016-08-09 08:00] VITALS: BP 166/98
[2016-08-09] MEDS: PANTOPRAZOLE 40 MG TABEC PO SCH (08:29)
[2016-08-09] MEDS: PRAZOSIN 1 MG CAP PO SCH ×2 (08:29→14:54)
[2016-08-09] MEDS: LISINOPRIL 20 MG TAB PO SCH (08:29)
[2016-08-09] MEDS: NIFEdipine 30 MG TABER PO SCH (08:29)
--- NOTE | 2016-08-09 08:29 | NUR ---
DUE MEDICATIONS GIVEN, PT TOLERATED WELL, CALL LIGHT WITHIN REACH, WILL CONTINUE TO MONITOR.
[2016-08-09] MEDS: ENOXAPARIN 30 MG/0.3 ML SYR SUBQ SCH (08:34)
[2016-08-09] MEDS ORDERED: COM5 PO (10:14)
[2016-08-09] MEDS ORDERED: PRAZ1CAP5 PO (10:14)
[2016-08-09] MEDS ORDERED: ADA30 PO (10:14)
--- NOTE | 2016-08-09 10:30 | NUR ---
PT SLEEPING IN BED BUT EASILY AWAKEN, NO S/S OF RESPIRATORY DISTRESS OR DISCOMFORT NOTED, CALL LIGHT WITHIN REACH.
--- NOTE | 2016-08-09 11:10 | NUR ---
PER DR. PALENCIA CHECKED PATIENT'S BP 161/99, HR 78.
--- NOTE | 2016-08-09 11:10 | NUR ---
CALLED [facility] AND SPOKE WITH RALPH. SHE SAID STILL WAITING FOR A BED. I INFORMED DR. PALENCIA.
--- NOTE | 2016-08-09 11:12 | NUR ---
WENT AHEAD AND INFORMED DR. PALENCIA OF THE PATIENT'S CURRENT BP AND HR.
--- NOTE | 2016-08-09 11:43 | NUR ---
FAXED CONCURRENT REVIEW TO [facility] [phone] PHONE [phone] X [phone], KALYAN
[2016-08-09 12:00] VITALS: BP 161/99
--- NOTE | 2016-08-09 12:58 | NUR ---
CALLED [facility] AND SPOKE WITH RALPH. STILL NO BED.
[2016-08-09] MEDS ORDERED: PROCHLORPERAZINE 5 MG TAB PO SCH (13:00)
--- NOTE | 2016-08-09 13:00 | NUR ---
PT RESTING IN BED, NO S/S OF RESPIRATORY DISTRESS OR DISCOMFORT NOTED, CALL LIGHT WITHIN REACH, WILL CONTINUE TO MONITOR.
--- NOTE | 2016-08-09 14:16 | NUR ---
RECEIVED A CALL FROM GODWIN FROM [facility] THEY HAVE A BED FOR THIS PATIENT. SHE WILL GO TO [address] RO[address] ALAN. CALL REPORT TO [phone]. CALLED [facility] AND SET UP ALS TRANSPORT FOR 2:45 TO 3P.M. [employer] TRAINER NURSE AWARE. I CALLED GODWIN BACK AT [facility] AND INFORMED HER OF THE TIME OF PICKUP. CALLED [facility] AND LEFT A MESSAGE FOR KALYAN.
--- NOTE | 2016-08-09 15:15 | NUR ---
CALLED [facility] AT [phone] AND GAVE REPORT TO TITO ABRAHAM.
--- NOTE | 2016-08-09 15:25 | NUR ---
DISCHARGE INSTRUCTIONS GIVEN, ID WRIST BAND REMOVED, MEDICATIONS FROM PHARMACY PICKED UP AND HANDED TO PATIENT, PT DISCHARGED IN STABLE CONDITION AND BEING TRANSFERRED OVER TO [facility].
== END 2016-08-09 15:25 | disposition short-term general hospital (02) | DRG 199 ==
LOC: MED 14:29 → MTU 17:54
PROVIDERS: ADMIT Hospitalist; ATTEND Hospitalist
DX: I16.0 Hypertensive urgency (principal); K31.84 Gastroparesis; E11.43 Type 2 diabetes mellitus with diabetic autonomic (poly)neuropathy; I15.2 Hypertension secondary to endocrine disorders; R11.2 Nausea with vomiting, unspecified; E03.9 Hypothyroidism, unspecified; Z90.49 Acquired absence of other specified parts of digestive tract; Z79.899 Other long term (current) drug therapy
CPT/HCPCS: 36415; 70450; 71010; 71250; 80048; 80053; 80305; 82948; 83036; 83735; 83880; 84439; 84443; 84484; 85025; 85610; 85730; 87081; 93005; 96361; 96374; 96375; 99285; J0360; J0780; J1200; J1650; J1815; J2060; J2270; J2405; J3030; J7030